=== PATIENT | female | born 1980 | race Caucasian/White ===

== ENCOUNTER 2023-08-10 10:15 | Outpatient (RCR) | payer OTHER, SELFPAY | END 2023-08-10 23:59 | disposition home or self-care (01) | LOC: RPT 10:15 | PROVIDERS: ATTENDING PHYSICIAN Nurse Practitioner Family | DX: M25.511 Pain in right shoulder (principal); G89.29 Other chronic pain | CPT/HCPCS: 97110; 97162 ==

== ENCOUNTER 2023-09-08 14:02 | Outpatient (RCR) | payer OTHER, SELFPAY | END 2023-09-08 23:59 | disposition home or self-care (01) | LOC: RPT 14:02 | PROVIDERS: ATTENDING PHYSICIAN Physician Assistant | DX: M25.511 Pain in right shoulder (principal); G89.29 Other chronic pain; Z73.6 Limitation of activities due to disability | CPT/HCPCS: 97010; 97110; 97112 ==

== ENCOUNTER 2023-09-15 13:45 | Outpatient (RCR) | payer OTHER, SELFPAY | END 2023-09-15 23:59 | disposition home or self-care (01) | LOC: RPT 13:45 | PROVIDERS: ATTENDING PHYSICIAN Physician Assistant | DX: M25.511 Pain in right shoulder (principal); G89.29 Other chronic pain; Z73.6 Limitation of activities due to disability; M62.81 Muscle weakness (generalized) | CPT/HCPCS: 97010; 97110 ==

== ENCOUNTER → 2023-09-18 09:22 | Outpatient (REF) | payer OTHER, SELFPAY | LOC: RAD 09:22 | PROVIDERS: ATTENDING PHYSICIAN Physician Assistant | DX: M25.511 Pain in right shoulder (principal) | CPT/HCPCS: 73030 ==

== ENCOUNTER → 2023-10-26 06:34 | Outpatient (REF) | payer OTHER, SELFPAY | LOC: MRI 3T 06:34 | PROVIDERS: ATTENDING PHYSICIAN Physician Assistant | DX: M25.511 Pain in right shoulder (principal); M25.619 Stiffness of unspecified shoulder, not elsewhere classified; G89.29 Other chronic pain | CPT/HCPCS: 73221 ==

== ENCOUNTER 2024-09-24 18:01 | Emergency (ER) | payer OTHER, SELFPAY ==
[2024-09-24 18:20] VITALS: BP 112/70
[2024-09-24 18:36] LABS: % Basophils 0.5 % (0-2); % Eosinophils 6.5 % (0-6); % Immature Granulocytes 0.2 % (0-0.5); % Lymphocytes 36.7 % (20.5-51.1); % Neutrophils 47.1 % (42.2-75.2); Absolute Eosinophils 0.3 10^3/uL (0-0.7); Absolute Lymphocytes 1.6 10^3/uL (1.2-3.4); Absolute Monocytes 0.4 10^3/uL (0.1-0.6); Hematocrit 34.3 % (37.0-47.0); Hemoglobin 12.2 g/dL (12.0-16.0); Mean Corp Hgb Conc. 35.6 g/dL (33.0-37.0); Mean Corpuscular Hgb 31.2 pg (27.0-31.0); Mean Corpuscular Volume 87.7 fL (81.0-99.0); Mean Platelet Volume 10.4 fL (7.4-10.4); Nucleated Red Blood Cells % 0 %; Platelet Count 174 10^3/uL (130-400); Red Blood Cell Count 3.91 10^6/uL (4.20-5.40); Red Cell Dist. Width 11.7 % (11.5-14.5); White Blood Cell Count 4.3 10^3/uL (4.8-10.8)
[2024-09-24 18:43] LABS: HCG, Serum Qualitative Screen Negative
[2024-09-24 18:53] LABS: ALT (SGPT) 23 U/L (0-35); AST (SGOT) 24 U/L (14-36); Alkaline Phosphatase 60 U/L (38-126); Blood Urea Nitrogen 9 mg/dl (7-17); Calcium 9.2 mg/dl (8.4-10.2); Carbon Dioxide 26 mmol/L (22-30); Chloride 105 mmol/L (98-107); Glucose 99 mg/dl (70-99); Lipase 313 U/L (23-300); Potassium 4.2 mmol/L (3.5-5.1); Sodium 137 mmol/L (135-145); Total Bilirubin 0.3 mg/dl (0.2-1.3); Total Protein 6.4 g/dl (6.3-8.2); eGFR > 60.00
--- NOTE | 2024-09-24 22:46 | ED.GENMED ---
History of Present Illness
General
Chief Complaint: Abdominal Pain
Source: patient
Exam Limitations: none
Time Seen by Provider: 09/24/24 20:37
Nursing documentation reviewed up to this point in time: agreed with
History of Present Illness
History of Present Illness:
43-year-old female with history of GERD on pantoprazole, esophageal polyps removed twice by endoscopy, the last time was 2022, states for the past 5 days she has had pain across her upper abdomen and cannot get comfortable. She is having normal
bowel movements. She states the pain is worse with deep breath. She states stretching out relieves the pain some. She denies fever. She has felt nauseous but has not vomited. Her appetite has been decreased. Earlier the pain was 8/10, now it
is 5/10.
Past History
Past History
ED Past Medical History: GERD
ED Past Surgical History: Tonsilectomy
Social History
Tobacco: Non-smoker
Alcohol: Occasional
Personal:
Living: with family
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
Review of Systems
Review of Systems
Allergies reviewed?: Yes
All Other Systems: ROS reviewed and negative except as documented in HPI and ROS
Constitutional: Denies fever
Respiratory: Denies trouble breathing
Cardiac: Denies chest pain
ABD/GI: Reports abdominal pain, nausea and anorexia; Denies vomiting, diarrhea, bloody stools or black stools
: Denies dysuria, frequency, difficulty voiding or urgency
Musculoskeletal: Reports no symptoms
Skin: Reports no symptoms
Neurological: Reports no symptoms
Phy Exam
Physical Exam
Physical Exam:
GENERAL: No acute distress. A&Ox3.
CONSTITUTIONAL: Afebrile.
EYES: clear, conjunctivae normal
ENMT: moist mucus membranes, Pharynx nl
RESPIRATORY: Regular respirations, nonlabored, lungs clear.
CARDIOVASCULAR: Regular rate and rhythm, no murmurs, no rubs.
GI: Soft, nontender, normal BS
MUSCULOSKELETAL: Moves with ease. Well perfused.
SKIN: Warm, dry, pink
PSYCH: Normal mood and affect. Well kept, interactive and appropriate
NEUROLOGIC: Awake, alert and oriented. No focal neurological deficits
Course
Orders/Labs/Results
Orders:
Orders
09/24/24 18:24
Test Result ONCE
09/24/24 18:27
Complete Blood Count/With Diff Urgent
Comprehensive Metabolic Panel Urgent
HCG, Serum Qualitative Screen Urgent
Comment: Notify provider if positive test present
Lipase Urgent
09/24/24 20:39
US Abdomen Complete/Upper Urgent
Comment:
Reason For Exam: upper abd pain to back
Abnormal Lab Results
09/24/24
18:27
WBC 4.3 L 10^3/uL
(4.8-10.8)
RBC 3.91 L 10^6/uL
(4.20-5.40)
Hct 34.3 L %
(37.0-47.0)
MCH 31.2 H pg
(27.0-31.0)
Eosinophils % 6.5 H %
(0-6)
Lipase 313 H U/L
(23-300)
09/24/24 18:27
09/24/24 18:27
Vital Signs
Initial and Last Documented VS:
Initial Vital Signs
Temp Pulse Resp BP Pulse Ox
98.2 F 71 16 112/70 100
09/24/24 18:20 09/24/24 18:20 09/24/24 18:20 09/24/24 18:20 09/24/24 18:20
Last Documented Vital Signs
Temp Pulse Resp BP Pulse Ox
98.2 F 72 16 117/58 98
09/24/24 18:20 09/24/24 23:14 09/24/24 23:14 09/24/24 23:14 09/24/24 23:14
MDM/Problems Addressed
Differential Diagnosis Includes:
GERD, cholelithiasis, biliary colic
MDM/Problems Addressed:
43-year-old female with history of GERD on pantoprazole, esophageal polyps removed twice by endoscopy, the last time was 2022, states for the past 5 days she has had pain across her upper abdomen and cannot get comfortable. She is having normal
bowel movements. She states the pain is worse with deep breath. She states stretching out relieves the pain some. She denies fever. She has felt nauseous but has not vomited. Her appetite has been decreased. Earlier the pain was 8/10, now it
is 5/10.
Afebrile, NAD
CBC with no clinically significant abnormality
CMP normal
hCG negative
Ultrasound upper abdomen radiology report read: IMPRESSION: No evidence of cholelithiasis, gallbladder wall thickening or biliary tract dilatation.
11:00 PM:
In to reevaluate patient. Results of all studies reviewed
Nothing in workup today to explain her symptoms, reevaluation reveals persistent discomfort to palpation from epigastric to left upper quadrant
I see no utility in CT scan as the rest of the abdomen is benign, no sign of appendicitis.
Pt called Dr. Ramos's office 2 days ago and could not get appt until December.
I will sent her info to the GI hotline to get earlier appointment
*Critical Care Note
Total Time (30-74mins, 75-104mins- exclusive of procedures): Not Applicable
ED Attending Note
-
Portions of this chart may have been created with voice recognition software.� Occasional wrong word or��sound alike� substitutions may have occurred due to the inherent limitations of voice recognition software.
Discharge Plan
Departure
Patient Disposition: Home (Routine Discharge)
Date of Disposition: 09/24/24
Time of Disposition: 23:06
Patient with high blood pressure during this ER visit?: No
Condition: Good
Discharge Problem:
Abdominal pain
Instructions: Abdominal Pain
Prescriptions:
No Action
Vitamins
FOLIC ACID
Referrals:
Dilia Ramos MD [Active] - Next open appointment
Kaye Donahue MD [Family Provider] -
Activity Restrictions/Additional Instructions:
As we discussed, nothing to explain your symptoms in your workup here today
I sent your information to Dr. Ramos's office, someone from the office should call you tomorrow or Wednesday with a sooner appointment
Interventions
Interventions:
*Risk Screen - Suicide Last Done: 09/24/24 18:20
*General Assessment Last Done: 09/24/24 18:20
*Neglect/Abuse Screening Last Done: 09/24/24 18:20
*ED- Fall Risk Assessment Last Done: 09/24/24 23:15
*ED COVID-19 Vaccine History Last Done: 09/24/24 18:20
*Nursing Disposition Last Done: 09/24/24 23:15
MW-Pryfmn-Ddwycdmwid Assessment Last Done: 09/24/24 21:44
Discharge Date and Time
Discharge Date/Time: 09/24/24 23:15
Print Language: BELARUSIAN
[2024-09-24 23:14] VITALS: BP 117/58
== END 2024-09-24 23:15 | disposition home or self-care (01) ==
LOC: EMR 18:01
PROVIDERS: Emergency Medicine; EMERGENCY PHYSICIAN Emergency Medicine; FAMILY PHYSICIAN Family Medicine
DX: R10.10 Upper abdominal pain, unspecified (principal); K21.9 Gastro-esophageal reflux disease without esophagitis; Z86.018 Personal history of other benign neoplasm; Z79.899 Other long term (current) drug therapy
CPT/HCPCS: 99284; 76700; 80053; 83690; 84703; 85025